=== PATIENT | male | born 1985 | race Caucasian/White ===

== ENCOUNTER 2016-05-27 19:19 | Emergency (ER) | payer OTHER ==
--- NOTE | ~2016-05-27 | CR72 ---
[facility] A Service of [facility] / [facility] RADIOLOGY TEXT RESULTS PATIENT: SUZIE WEEKS LOCATION: SED : 83 UNIT #: [id number] AGE: [address]: Ruben Vásquez MD SEX: M ORDER DR: [id number] [address] [address] [id number] E MR#: [id number] Acc #: [id number] NAME: SUZIE WEEKS : 1985 SEX: M STUDY DATE/TIME: 05/27/2016 19:36 UNIT: SED ROOM: STUDY DESCRIPTION: CR Chest Single View Portable Attending Physician: Ruben Vásquez M.D. Ordering Physician: Ruben Vásquez M.D. Primary Care Physician: Primary Care Physician No MEDICAL IMAGING REPORT This report is preliminary unless electronic signature is present. EXAM Portable chest HISTORY Flu-like symptoms with cough, dehydration, nausea, vomiting and diarrhea for the past several days. TECHNIQUE Single view of the chest was obtained. FINDINGS Single view of the chest shows stable heart size. The inspiratory effort is shallow. There are infiltrates seen in the right upper lung field laterally and along the left heart border. Given the patient's history, these infiltrates likely represent pneumonia. The infiltrates themselves however are nonspecific and the right upper lobe infiltrate has a broad base with the pleura raising the possibility of pulmonary infarct in the appropriate clinical setting of recent pulmonary embolism. No pleural fluid is seen. Vascular markings are normal. IMPRESSION Nonspecific bilateral infiltrates. This most likely represents pneumonia but I would also consider other etiologies in the appropriate clinical setting such as evolving pulmonary infarction given the somewhat triangular-shaped appearance of the infiltrate particularly on the right. No evidence of pleural fluid. Pulmonary vascular markings are normal. Dictated by... Camden Mercer M.D. THIS IS AN ELECTRONICALLY VERIFIED REPORT Camden Mercer M.D. at 05/29/2016 11:02 AM [facility] A Service of [facility] / [facility] RADIOLOGY TEXT RESULTS PATIENT: SUZIE WEEKS LOCATION: SED : 84 UNIT #: [id number] AGE: [address]: Ruben Vásquez MD SEX: M ORDER DR: YELENA/david TD: 05/28/2016 11:21 JOB #: [id number] MEDICAL IMAGING REPORT Page 1 of 1
--- NOTE | ~2016-05-27 | CT16 ---
[facility] A Service of [facility] & [facility] RADIOLOGY TEXT RESULTS PATIENT: SUZIE WEEKS LOCATION: SED : 83 UNIT #: [id number] AGE: [address]: Ruben Vásquez MD SEX: M ORDER DR: [id number] [address] [address] [id number] E MR#: [id number] Acc #: [id number] NAME: SUZIE WEEKS : 1985 SEX: M STUDY DATE/TIME: 05/27/2016 20:51 UNIT: SED ROOM: STUDY DESCRIPTION: CT Angio Chest for PE Attending Physician: Ruben Vásquez M.D. Ordering Physician: Ruben áVsquez M.D. Primary Care Physician: No Primary Care Physician MEDICAL IMAGING REPORT This report is preliminary unless electronic signature is present. EXAM Chest CT with contrast, with CT angiography. HISTORY Flu-like symptoms with nausea, vomiting, and diarrhea for several days. Elevated white count and abnormal chest x-ray showing bilateral infiltrates with a broad pleural base. TECHNIQUE Axial imaging was obtained through the chest with contrast. 100 mL of Isovue was used. CT angiography was performed with thick sliding MIPS in sagittal and coronal projections. This CT exam was performed with one or more of the following radiation dose reduction techniques: automatic exposure control, adjustment of mA and/or kV according to patient size, and iterative reconstruction. FINDINGS Chest images at mediastinal window show a filling defect in the right lower lobe pulmonary artery, consistent with an acute pulmonary embolism. This leads to a cavitated wedge-shaped infarct at the right lung base in the posterior costophrenic sulcus. There are numerous other cavitated infiltrates bilaterally, but no additional pulmonary artery filling defects are seen. Findings are consistent with extensive pneumonia and septic emboli. Mildly prominent lymph nodes are seen in the subcarinal space and in both vira, likely reactive in nature. Visualized upper abdominal structures are unremarkable. IMPRESSION 1. Bilateral numerous cavitary lesions are noted, as well as several noncavitary infiltrates, especially right upper lobe. Findings consistent with septic emboli. 2. There is a filling defect in the right lower lobe pulmonary artery, STS. [facility] A Service of [facility] & [facility] RADIOLOGY TEXT RESULTS PATIENT: SUZIE WEEKS LOCATION: SED : [birth year] UNIT #: [id number] AGE: [address]: Ruben Vásquez MD SEX: M ORDER DR: consistent with acute pulmonary embolism with a wedge-shaped cavitating infiltrate distal to it, compatible with an infarct. Despite the numerous bilateral cavitary lesions, this is the only pulmonary artery filling defect identified. Reactive adenopathy is seen in the mediastinum and at both vira. Dictated by... Camden Mercer M.D. THIS IS AN ELECTRONICALLY VERIFIED REPORT Camden Mercer M.D. at 05/29/2016 11:02 AM YELENA/dia TD: 05/28/2016 11:35 JOB #: [id number] MEDICAL IMAGING REPORT Page 1 of 1
--- NOTE | ~2016-05-27 | EKG ---
PATIENT: SUZIE WEEKS UNIT #: [id number] Ventricular Rate: 129 BPM Atrial Rate: 129 BPM P-R Interval: 130 ms QRS Duration: 104 ms Q-T Interval: 326 ms QTC Calculation(Bezet): 477 ms P [place]: 17 degrees Calculated R [place]: 15 degrees Calculated T [place]: 15 degrees Diagnosis Line: Sinus tachycardia Diagnosis Line: Otherwise normal ECG Diagnosis Line: No previous ECGs available Diagnosis Line: Confirmed by CIRO DEL VALLE MD ([id number]) on 06/01/2016 Diagnosis Line: 9:38:30 AM INTERPRETING MD: IVON GRIDER
[~2016-05-27 19:19] MED LIST: AFRIN15 M1 NS; ALBUTEROL17 GM INH; CIPRO PO; SUDAFED PO; TYLENOL #3 PO
[2016-05-27 19:56] LABS: URINE SOURCE CLEAN CATCH
[2016-05-27 19:59] LABS: MICRO INDICATED? YES; URINE APPEARANCE CLEAR; URINE BILIRUBIN POS (NEG); URINE BLOOD 2+ (NEG); URINE COLOR YELLOW; URINE GLUCOSE NEG (NORM); URINE KETONE NEG (NEG); URINE LEUKOCYTE ESTERASE NEG (NEG); URINE NITRATE NEG (NEG); URINE PH 5.5 (5-8); URINE PROTEIN 2+ (NEG)
[2016-05-27 20:05] LABS: AMPHETAMINE POS (NEG); BARBITURATES NEG (NEG); BENZODIAZEPINES NEG (NEG); COCAINE NEG (NEG); MARIJUANA NEG (NEG); OPIATES POS (NEG); TRICYCLIC ANTIDEPRESSANTS NEG (NEG); U METHADONE NEG (NEG)
[2016-05-27 20:09] LABS: CULTURE INDICATED? YES; URINE AMORPHOUS SEDIMENT AMORP URATES; URINE BACTERIA 1+ (NEG); URINE MUCUS PRESENT; URINE SQUAMOUS EPITHELIAL CELL FEW /[HPF]; URINE WBC 0-2 /[HPF] (0-5)
[2016-05-27 20:14] LABS: BASOPHIL# 0.1 X10e3 (0-0.3); EOSINOPHIL% 0.1 % (0.0-7.0); HEMATOCRIT 31.2 % (38.0-50.0); HEMOGLOBIN 10.2 gm/dL (13.0-16.0); LYMPHOCYTE# 0.9 X10e3 (1.0-3.5)
[2016-05-27 20:16] LABS: BASOPHIL% 0.4 % (0-2.5); INR 1.7; LYMPHOCYTE% 4.1 % (17.0-45.0); MEAN CELL VOLUME 82.9 FL (83-96); MEAN CORPUSCULAR HGB CONC 32.6 g/dL (30-36); MEAN PLATELET VOLUME 10.3 FL (6.5-11.5); MONOCYTE% 8.6 % (3.0-12.0); NEUTROPHIL% 86.8 % (40-75); PROTHROMBIN TIME (PATIENT) 19.6 SECONDS (9.5-12.4); RED BLOOD COUNT 3.77 X10e (3.90-5.60); RED CELL DISTRIBUTION WIDTH 14.1 % (11.0-15.5); WHITE BLOOD COUNT 23.1 X10e3 (4.0-10.5)
[2016-05-27 20:18] LABS: DIFF IND NO; PLATELET COUNT 33 X10e3 (140-420)
[2016-05-27 20:22] LABS: POC - CKMB 1.4 ng/mL (0.0-7.9)
[2016-05-27 20:23] LABS: INFLUENZA A NEG (NEG); INFLUENZA B NEG (NEG)
[2016-05-27 20:23] LABS: POC - TROPONIN <0.05 ng/mL (<=0.05)
[2016-05-27 20:23] LABS: PARTIAL THROMBOPLASTIN TIME 29.5 SECONDS (25.6-38.1)
[2016-05-27 20:31] LABS: ALBUMIN SERUM 1.9 g/dL (3.5-5.0); ALKALINE PHOSPHATASE 157 U/L (32-92); ALT (SGPT) 63 U/L (10-40); AST (SGOT) 131 U/L (10-42); BILIRUBIN,INDIRECT 0.8 mg/dL (0.0-0.9); BILIRUBIN,TOTAL 1.8 mg/dL (0.2-2.0); BLOOD UREA NITROGEN 27 mg/dL (9-23); CALCIUM SERUM 7.1 mg/dL (8.4-10.2); CARBON DIOXIDE 26 mmol/L (22-31); CHLORIDE 82 mmol/L (100-111); GLOM FILT RATE Estimated ABOVE60 mL/min (>60); GLUCOSE FASTING 111 mg/dL (70-110); LIPASE 34 U/L (22-51); PROTEIN TOTAL SERUM 6.1 g/dL (6.0-8.3); SODIUM 119 mmol/L (135-145)
[2016-05-27 20:32] LABS: POTASSIUM 2.9 mmol/L (3.5-5.1)
== END 2016-05-28 01:20 | disposition hospice, home (50) ==
LOC: SED 19:19
PROVIDERS: Emergency Medicine
DX: I26.90 Septic pulmonary embolism without acute cor pulmonale (principal); A41.9 Sepsis, unspecified organism; J18.9 Pneumonia, unspecified organism; E87.1 Hypo-osmolality and hyponatremia; D69.6 Thrombocytopenia, unspecified; F17.200 Nicotine dependence, unspecified, uncomplicated
CPT/HCPCS: 36415; 71010; 71275; 80048; 80076; 80307; 81003; 82550; 82553; 83605; 83690; 83735; 83874; 83880; 84484; 85025; 85610; 85730; 86308; 87040; 87070; 87077; 87086; 87186; 87205; 87804; 93005; 96365; 99291; J1956; J2543; J3370; Q9967